=== PATIENT | male | born 1970 | race African-American/Black ===

== ENCOUNTER 2018-07-12 13:54 | Emergency (ER) | payer MEDICAID ==
[~2018-07-12] VITALS: Ht 190.5 cm; Wt 109.0 kg
[2018-07-12] MEDS ORDERED: SODIUM CHLORIDE 0.9% 1,000 ML IV ONE (15:30)
[2018-07-12] MEDS ORDERED: LACTATED RINGERS 1,000 ML IV STA (15:31)
[2018-07-12 15:44] LABS: BASOPHILS % 0.4 % (0.0-2.0); EOSINOPHILS % 0.3 % (0.0-5.0); HEMATOCRIT. 42.7 % (42.0-52.0); HEMOGLOBIN. 13.9 g/dL (14.0-18.0); LYMPHOCYTES % 10.3 % (20.0-50.0); MEAN CORPUSCULAR HEMOGLOBIN 31.7 pg (28.0-32.0); MEAN CORPUSCULAR VOLUME 97.5 fL (80.0-94.0); MEAN PLATELET VOLUME 9.7 fl (7.4-10.4); MONOCYTES % 5.4 % (2.0-8.0); NEUTROPHILS % 83.6 % (40.0-76.0); PLATELET 183 x1000/uL (130-400); RED BLOOD CELL COUNT 4.38 mill/uL (4.7-6.1); RED CELL DISTRIBUTION WIDTH 13.7 % (11.6-14.6)
[2018-07-12 15:50] LABS: CHLORIDE 110 mEq/L (98-107)
[2018-07-12 17:40] VITALS: BP 144/68
== END 2018-07-12 17:53 | disposition home or self-care (01) ==
LOC: ER 13:54
DX: R55 Syncope and collapse (principal); Z96.649 Presence of unspecified artificial hip joint
CPT/HCPCS: 36415; 80053; 84484; 85025; 93005; 96360; 99284; J7030; J7120